=== PATIENT | female | born 1960 | race Caucasian/White ===

== ENCOUNTER → 2016-07-31 | Outpatient (CLI) | payer OTHER ==
--- NOTE | ~2016-07-31 | MY11 ---
[facility] RADIOLOGY TEXT RESULTS PATIENT: WILLIE WADE LOCATION: [facility] : 56 UNIT #: [id number] AGE: [address]: MICHELLE STEVENS MD SEX: F ORDER DR: [id number] [place], [place] [address] [id number] MR#: [id number] Acc #: [id number] NAME: WILLIE WADE : 1960 SEX: F STUDY DATE/TIME: 07/31/2016 8:01 UNIT: [facility] ROOM: STUDY DESCRIPTION: MY Mammogram Screening Dig Brennan Attending Physician: Michelle Stevens M.D. Referring Physician: Michelle Stevens M.D. Ordering Physician: Michelle Stevens M.D. Primary Care Physician: Kamila Dietz M.D. MEDICAL IMAGING REPORT This report is preliminary unless electronic signature is present EXAM Bilateral digital screening mammogram with CAD INDICATIONS Routine screening. No current complaints. No family history of breast cancer. IMPRESSION 07/14/2015, 09/19/2013, 03/19/2013 TECHNIQUE MLO and CC digital views of each breast were obtained. The exam was reviewed with an FDA-approved CAD device. FINDINGS There are scattered fibroglandular densities present. There are no masses or abnormal calcifications. There is a stable 5 mm nodule in the right breast medially. IMPRESSION No change. No evidence of malignancy. Patient's over the age of 40 are entered into a reminder system with target due date for the next mammogram. A result letter will be sent to the patient. BIRADS: 2 Benign findings. Dictated by... Noé Spivey M.D. THIS IS AN ELECTRONICALLY VERIFIED REPORT [facility] RADIOLOGY TEXT RESULTS PATIENT: WILLIE WADE LOCATION: [facility] : 56 UNIT #: [id number] AGE: [address]: MICHELLE STEVENS MD SEX: F ORDER DR: Noé Spivey M.D. at 08/01/2016 7:13 AM FEL/to TD: 07/31/2016 14:38 JOB #: [id number] MEDICAL IMAGING REPORT COPY
== END | disposition home or self-care (01) ==
LOC: CWCC 07:39
DX: Z12.31 Encounter for screening mammogram for malignant neoplasm of breast (principal)
CPT/HCPCS: G0202